=== PATIENT | female | born 1965 | race Caucasian/White ===

== ENCOUNTER 2018-10-25 15:23 | Outpatient (CLI) | payer BC ==
[2018-10-25] MEDS ORDERED: [UNRECOGNIZED DRUG - OTHER] PO (16:02)
== END 2018-10-25 23:59 | disposition home or self-care (01) ==
LOC: MERGE 15:23 → STAR 15:23
PROVIDERS: ATTEND Orthopaedic Surgery
DX: Z02.9 Encounter for administrative examinations, unspecified (principal)

== ENCOUNTER 2018-10-31 10:21 | Day surgery (SDC) | payer BC ==
[2018-10-25 15:36] VITALS: BP 153/82
[~2018-10-31] VITALS: Ht 172.7 cm; Wt 82.0 kg
[~2018-10-31 10:21] MED LIST: LIDOCAINE 1%-EPI 1:100K, 30ML ONE; [UNRECOGNIZED DRUG - OTHER] PO; morphine SULFATE/PF 1 MG/ML, 10ML ONE
[2018-10-31] MEDS ORDERED: LACTATED RINGERS 1,000 ML IV SCH (11:10)
[2018-10-31] MEDS ORDERED: FENTANYL PF 100 MCG/2ML ONE ×2 (11:33→13:00)
[2018-10-31] MEDS ORDERED: MIDAZOLAM 1 MG/ML, 2ML ONE (11:33)
[2018-10-31] MEDS ORDERED: SUCCINYLCHOLINE 20 MG/ML, 10ML ONE (11:51)
[2018-10-31] MEDS ORDERED: KETOROLAC 30 MG/1 ML ONE (11:51)
[2018-10-31] MEDS ORDERED: DEXAMETHASONE 4 MG/ML, 5ML ONE (11:51)
[2018-10-31] MEDS ORDERED: LIDOCAINE 2%, 6 ML JEL.PF.APP MM ONE (11:52)
[2018-10-31] MEDS ORDERED: PROPOFOL 10 MG/ML, 20ML ONE (12:19)
[2018-10-31] MEDS ORDERED: CEFAZOLIN 1,000 MG ONE (12:19)
[2018-10-31] MEDS ORDERED: ONDANSETRON 2MG/ML, 2ML ONE (12:19)
[2018-10-31] MEDS ORDERED: PROMETHAZINE 25 MG/ML, 1ML IV PRN (12:30)
[2018-10-31] MEDS ORDERED: HYDROmorphone 2 MG/ML, 1ML IVPush PRN (12:30)
[2018-10-31] MEDS ORDERED: ALBUTEROL/IPRATROPIUM 2.5MG/0.5MG, 3 ML NPPB PRN (12:30)
[2018-10-31] MEDS ORDERED: hydrALAzine 20 MG/ML, 1ML IV PRN (12:30)
[2018-10-31] MEDS ORDERED: ONDANSETRON 2MG/ML, 2ML IV PRN (12:30)
[2018-10-31] MEDS ORDERED: MEPERIDINE/PF 25MG/0.5ML IVPush PRN (12:30)
[2018-10-31] MEDS ORDERED: SCOPOLAMINE PATCH, 1.5MG PATCH.TD72 TD PRN (12:30)
[2018-10-31] MEDS ORDERED: MIDAZOLAM 1 MG/ML, 2ML IV PRN (12:30)
[2018-10-31] MEDS ORDERED: METOPROLOL 1 MG/ML, 5ML IV PRN (12:30)
[2018-10-31] MEDS ORDERED: ACETAMINOPHEN 325 MG TABLET PO PRN (12:30)
[2018-10-31] MEDS ORDERED: OXYcodone 5 MG/5 ML ORAL.SOL UDC ONE ×2 (12:52→13:31)
[2018-10-31] MEDS ORDERED: ACETAMINOPHEN 650 MG/20.3 ML UDC ONE (12:52)
[2018-10-31] MEDS: OXYcodone 5 MG/5 ML ORAL.SOL UDC PO PRN ×2 (12:54→13:32)
[2018-10-31] MEDS: FENTANYL PF 100 MCG/2ML IV PRN ×2 (13:00→13:21)
== END 2018-10-31 15:25 | disposition home or self-care (01) ==
LOC: OUT 10:21 → MERGE 12:15 → OUT 15:25
PROVIDERS: ATTEND Orthopaedic Surgery
DX: S83.242A Other tear of medial meniscus, current injury, left knee, initial encounter (principal); X58.XXXA Exposure to other specified factors, initial encounter; Y93.89 Activity, other specified; Y92.89 Other specified places as the place of occurrence of the external cause; Y99.8 Other external cause status; M94.262 Chondromalacia, left knee; M25.862 Other specified joint disorders, left knee; M24.662 Ankylosis, left knee; M65.862 Other synovitis and tenosynovitis, left lower leg
CPT/HCPCS: 29876; 29881; J0330; J0690; J1100; J1885; J2250; J2274; J2405; J2704; J3010; J3490; J7120